=== PATIENT | female | born 1945 | race African-American/Black ===

== ENCOUNTER 2016-12-11 10:44 | Emergency (ER) | payer OTHER ==
[~2016-12-11] VITALS: Ht 157.5 cm; Wt 81.7 kg
[~2016-12-11 10:44] MED LIST: APAP W/CODEINE1 TA2 PO; NORCO 5-325 TA1 EACH PO
[2016-12-11] MEDS ORDERED: MOBIC15 MG PO (11:58)
[2016-12-11] MEDS ORDERED: LIORESAL 10 MG10 MG PO (12:25)
[2016-12-11 12:45] VITALS: BP 135/66
== END 2016-12-11 13:05 | disposition home or self-care (01) ==
LOC: ER 10:44
DX: S00.93XA Contusion of unspecified part of head, initial encounter (principal); S80.01XA Contusion of right knee, initial encounter; M25.551 Pain in right hip; Z86.73 Personal history of transient ischemic attack (TIA), and cerebral infarction without residual deficits; Z88.8 Allergy status to other drugs, medicaments and biological substances; V49.40XA Driver injured in collision with unspecified motor vehicles in traffic accident, initial encounter; Y93.I9 Activity, other involving external motion; Y92.89 Other specified places as the place of occurrence of the external cause; Y99.8 Other external cause status

== ENCOUNTER → 2017-04-16 | Outpatient (CLI) | payer OTHER ==
[~2017-04-16] MED LIST changes: +LIORESAL 10 MG10 MG PO; +MOBIC15 MG PO
[2017-04-16 16:06] LABS: HEMATOCRIT 32.1 % (37.0-47.0); MCH 28.8 pg (26.0-34.0); MCHC 31.3 g/dL (28.0-37.0); MCV 92.1 fL (80.0-100.0); PLATELET COUNT 376 thou/uL (150-400); RBC 3.48 mil/uL (4.20-5.00); RDW 18.9 % (10.5-14.5); WBC 8.3 thou/uL (4.0-11.0)
[2017-04-16 16:07] LABS: MANUAL DIFF YES
[2017-04-16 16:48] LABS: METAMYELOCYTES 1 %; MYELOCYTES 1 %; TOTAL CELL COUNT 100
[2017-04-16 16:49] LABS: LARGE PLATELETS SEVERAL; OVALOCYTES 1+; POLYCHROMASIA 1+
== END ==
LOC: ULTRA 14:41
PROVIDERS: Registered Nurse
DX: M71.22 Synovial cyst of popliteal space [Baker], left knee (principal); D47.3 Essential (hemorrhagic) thrombocythemia; M79.89 Other specified soft tissue disorders

== ENCOUNTER 2019-01-20 18:38 | Emergency (ER) | payer OTHER ==
[~2019-01-20] VITALS: Ht 157.5 cm; Wt 77.1 kg
[2019-01-20 19:56] LABS: HEMATOCRIT 28.2 % (37.0-47.0); HEMOGLOBIN 9.4 gm/dL (12.0-15.0); MCH 31.6 pg (26.0-34.0); MCHC 33.3 g/dL (28.0-37.0); MCV 94.9 fL (80.0-100.0); PLATELET COUNT 287 thou/uL (150-400); RBC 2.97 mil/uL (4.20-5.00); RDW 18.6 % (10.5-14.5)
[2019-01-20 20:01] LABS: CALCIUM 9.7 mg/dL (8.5-10.1); CREATININE 1.7 mg/dL (0.6-1.0); POTASSIUM 4.8 mmol/L (3.5-5.1)
[2019-01-20 20:08] LABS: ALBUMIN 3.6 g/dL (3.4-5.0); DIRECT BILIRUBIN 0.1 mg/dL (<0.1-0.3); TOTAL BILIRUBIN 0.6 mg/dL (<0.1-1.0); TOTAL PROTEIN 7.3 g/dL (6.4-8.2)
[2019-01-20 20:25] LABS: METAMYELOCYTES 1 %; NUCLEATED RBCS 2 /100WBC
[2019-01-20 20:25] LABS: URINE BILIRUBIN NEGATIVE (Negative); URINE BLOOD NEGATIVE (Negative); URINE CLARITY CLEAR; URINE COLOR YELLOW; URINE GLUCOSE-RANDOM* NEGATIVE (Negative); URINE KETONES NEGATIVE (Negative); URINE LEUKOCYTES-REFLEX TRACE (Negative); URINE NITRITE-REFLEX NEGATIVE (Negative); URINE PROTEIN (DIPSTICK) NEGATIVE (Negative); URINE SPECIFIC GRAVITY <= 1.005 (1.005-1.035); URINE UROBILINOGEN 0.2 E.U./dl (0.2-1.0)
[2019-01-20 20:26] LABS: ANISOCYTOSIS 2+; LARGE PLATELETS OCCASIONAL
[2019-01-20 20:28] LABS: OVALOCYTES FEW
[2019-01-20 22:26] VITALS: BP 160/70
== END 2019-01-20 22:27 | disposition home or self-care (01) ==
LOC: ER 18:38
PROVIDERS: Emergency Medicine
DX: R53.1 Weakness (principal); R60.0 Localized edema; R41.82 Altered mental status, unspecified; Z88.8 Allergy status to other drugs, medicaments and biological substances; Z86.73 Personal history of transient ischemic attack (TIA), and cerebral infarction without residual deficits